=== PATIENT | female | born 1935 | race Caucasian/White ===

== ENCOUNTER 2016-12-17 12:03 | Inpatient (IN) | payer MEDICARE ==
[~2016-12-17] VITALS: Ht 160 cm; Wt 92.3 kg
[2016-12-17] VITALS (7 sets, daily range): BP systolic 136–142; BP diastolic 49–78; PULSE 78–85; RESP 18–20; TEMP 97.2–99.4; O2SAT 89–97
[~2016-12-17 12:03] MED LIST: ALBU6.7H INH; ALPR.25 PO; ASPI1TAB69 PO; DONE5TAB7 PO; ENOX40IN SQ; GABA100C4 PO; HYDR-3516 PO; LEVO25TA4 PO; PERI8.6T PO; PLAV75TA29 PO; PROT40TA PO; REST15CA PO; ROPI.25 PO; THERTAB27 PO
[2016-12-17] MEDS ORDERED: RESP: ALBUTEROL 2.5 MG/IPRATROPIUM 0.5 MG NEB (SCH) INH ONE (12:15)
[2016-12-17] MEDS ORDERED: methylPREDNISolone SOD SUCC 125 MG/2 ML VIAL IVP ONE (12:15)
--- NOTE | 2016-12-17 12:16 | PD ---
HPI Chief Complaint: Respiratory Distress Time Seen by Provider: 12:05 Travel History International Travel<30 days: No Contact w/Intl Traveler<30days: No Traveled to known affect area: No History of Present Illness HPI 81-year-old female complains of shortness of breath. Patient states that the shortness of breath started this morning. Patient denies any coughing congestion fever chills. Patient denies any chest pain. Patient has history of COPD on home O2. Patient on 3 L nasal cannula at home. EMS was called. O2 saturation was in the 80s at home. Patient was given O2. Patient was given albuterol treatments [address] to the ED. Patient states that she is feeling better now. Patient has history of CAD status post CABG, normal pressure hydrocephalus status post COMPUTATIONAL CHEMIST shunt, hypertension, chronic back pain, dementia/Alzheimer's disease, hypothyroidism. PFSH Past Medical History Arthritis: Yes Asthma: No Autoimmune Disease: No Blood Disorders: No Anxiety: No Depression: No Heart Rhythm Problems: No Cancer: No Cardiovascular Problems: Yes High Cholesterol: Yes Chemotherapy: No Chest Pain: Yes (UNSTABLE ANGINA, TREATED WITH SURGERY) Congestive Heart Failure: No COPD: Yes Cerebrovascular Accident: No Coronary Artery Disease: Yes (UNSTABLE ANGINA) Diabetes: No Diminished Hearing: No Endocrine: Yes Gastrointestinal Disorders: Yes (LACTOSE INTOLERANT) GERD: Yes Glaucoma: No Genitourinary: No Headaches: No Hepatitis: No Hiatal Hernia: No Hypertension: Yes Immune Disorder: No Kidney Stones: No Musculoskeletal: Yes (CHRONIC BACK PAIN) Neurologic: Yes (NORMAL PRESSURE HYDROCEPHALUS) Psychiatric: No Reproductive: No Respiratory: Yes (COPD ON HOME O2 3L) Immunizations Current: Yes Migraines: No Myocardial Infarction: No Radiation Therapy: No Renal Failure: No Seizures: No Sickle Cell Disease: No Sleep Apnea: No Thyroid Disease: Yes (HYPOTHYROIDISM) Ulcer: No Menopausal: Yes Past Surgical History Abdominal Surgery: No AICD: No Arteriovenous Shunt: No Cardiac Surgery: Yes (CABG) Coronary Artery Bypass Graft: Yes Ear Surgery: No Endocrine Surgery: No Eye Surgery: Yes (BILATERAL LASER CATERACT SURGERY) Genitourinary Surgery: No Gynecologic Surgery: No Insulin Pump: No Joint Replacement: No Neurologic Surgery: Yes (SHUNT) Oral Surgery: No Pacemaker: No Thoracic Surgery: No Other Surgery: Yes Social History Alcohol Use: Yes ("OCCASIONALLY" PER PT) Tobacco Use: No Substance Use: No Allergies-Medications (Allergen,Severity, Reaction): Coded Allergies: Codeine (Verified Allergy, Mild, DIARRHEA, VOMITING, 12/17/16) Sulfa (Verified Allergy, Mild, GI BLEED, 12/17/16) Tetracycline (Verified Adverse Reaction, Severe, CAUSES PT TO GET YEAST INFECTION, PREFERS NOT TO HAVE MEDICA, 12/17/16) Reported Meds & Prescriptions Reported Meds & Active Scripts Active Reported Bisacodyl Supp (Bisacodyl) 10 Mg Supp 10 Mg RECTAL DAILY PRN Anoro Ellipta Inh (Umeclidinium/Vilanterol) 62.5-25 Mcg/Act Aero 1 Puff INH DAILY Mirtazapine 30 Mg Tab 30 Mg PO HS Clonazepam 1 Mg Tab 1 Mg PO BID Hydrocodone-Acetaminophen 10-325 mg Tab 1 Tab PO Q6H PRN Aspirin 81 Mg Tabdr 81 Mg PO DAILY Proventil Hfa 6.7 GM Inh (Albuterol Sulfate) 90 Mcg/Act Aer 2 Puff INH Q4HR PRN Gabapentin 100 Mg Cap 300 Mg PO BID Levothyroxine (Levothyroxine Sodium) 25 Mcg Tab 25 Mcg PO DAILY Irasema-Colace (Sennosides-Docusate Sodium) 8.6-50 Mg Tab 1 Tab PO BID Plavix (Clopidogrel Bisulfate) 75 Mg Tab 75 Mg PO DAILY Protonix (Pantoprazole Sodium) 40 Mg Tab 20 Mg PO DAILY Requip (Ropinirole HCl) 0.25 Mg Tab 0.25 Mg PO HS Theragran-M (Multiple Vitamins W/ Minerals) 1 Tab 1 Tab PO DAILY Donepezil 5 Mg Tab 23 Mg PO HS Review of Systems General / Constitutional: No: Fever Eyes: No: Visual changes HENT: No: Headaches Cardiovascular: No: Chest Pain or Discomfort Respiratory: Positive: Shortness of Breath Gastrointestinal: No: Abdominal Pain Genitourinary: No: Dysuria Musculoskeletal: No: Pain Skin: No Rash Neurologic: No: Weakness Psychiatric: No: Depression Endocrine: No: Polydipsia Hematologic/Lymphatic: No: Easy Bruising Physical Exam Narrative GENERAL: Well-nourished, well-developed patient. SKIN: Focused skin assessment warm/dry. HEAD: Normocephalic. EYES: No scleral icterus. No injection or drainage. NECK: Supple, trachea midline. No JVD or lymphadenopathy. CARDIOVASCULAR: Regular rate and rhythm without murmurs, gallops, or rubs. RESPIRATORY: Breath sounds equal bilaterally. No accessory muscle use. Patient has moderate expiratory wheezes bilaterally. Few rhonchi at the bases. GASTROINTESTINAL: Abdomen soft, non-tender, nondistended. MUSCULOSKELETAL: No cyanosis, or edema. BACK: Nontender without obvious deformity. No CVA tenderness. Neurologic exam normal. Data Data Last Documented VS Vital Signs Date Time Temp Pulse Resp B/P Pulse Ox O2 Delivery O2 Flow Rate FiO2 12/17/16 13:30 81 18 136/49 97 Nasal Cannula 3 12/17/16 12:05 99.4 Orders Complete Blood Count With Diff (12/17/16 12:05) Comprehensive Metabolic Panel (12/17/16 12:05) B-Type Natriuretic Peptide (12/17/16 12:05) Troponin I (12/17/16 12:05) Urinalysis - C+S If Indicated (12/17/16 12:05) Iv Access Insert/Monitor (12/17/16 12:05) Electrocardiogram (12/17/16 12:05) Ecg Monitoring (12/17/16 12:05) Oximetry (12/17/16 12:05) Oxygen Administration (12/17/16 12:05) Chest, Single Ap (12/17/16 12:05) Methylprednisolone So Succ Inj (Solumedr (12/17/16 12:15) Albuterol-Ipratropium Neb (Duoneb Neb) (12/17/16 12:15) Sodium Chlor 0.9% 1000 Ml Inj (Ns 1000 M (12/17/16 12:15) Influenzae A/B Antigen (12/17/16 12:07) Labs Laboratory Tests Test 12/17/16 12/17/16 12:20 12:42 White Blood Count 15.4 TH/MM3 Red Blood Count 3.95 MIL/MM3 Hemoglobin 11.8 GM/DL Hematocrit 36.9 % Mean Corpuscular Volume 93.4 FL Mean Corpuscular Hemoglobin 29.9 PG Mean Corpuscular Hemoglobin 32.0 % Concent Red Cell Distribution Width 14.5 % Platelet Count 286 TH/MM3 Mean Platelet Volume 7.1 FL Neutrophils (%) (Auto) 58.6 % Lymphocytes (%) (Auto) 30.9 % Monocytes (%) (Auto) 6.2 % Eosinophils (%) (Auto) 1.0 % Basophils (%) (Auto) 3.3 % Neutrophils # (Auto) 8.9 TH/MM3 Lymphocytes # (Auto) 4.8 TH/MM3 Monocytes # (Auto) 1.0 TH/MM3 Eosinophils # (Auto) 0.2 TH/MM3 Basophils # (Auto) 0.5 TH/MM3 CBC Comment DIFF FINAL Differential Comment Sodium Level 136 MEQ/L Potassium Level 4.5 MEQ/L Chloride Level 92 MEQ/L Carbon Dioxide Level 41.6 MEQ/L Anion Gap 2 MEQ/L Blood Urea Nitrogen 12 MG/DL Creatinine 0.77 MG/DL Estimat Glomerular Filtration 72 ML/MIN Rate Random Glucose 117 MG/DL Calcium Level 8.4 MG/DL Total Bilirubin 0.3 MG/DL Aspartate Amino Transf 21 U/L (AST/SGOT) Alanine Aminotransferase 18 U/L (ALT/SGPT) Alkaline Phosphatase 72 U/L Troponin I LESS THAN 0.02 NG/ML B-Type Natriuretic Peptide 73 PG/ML Total Protein 7.7 GM/DL Albumin 3.1 GM/DL MDM Medical Decision Making Medical Screen Exam Complete: Yes Emergency Medical Condition: Yes Interpretation(s) Last Impressions Chest X-Ray 12/17/16 1205 Signed Impressions: Service Date/Time: Saturday, December 17, 2016 12:19 - CONCLUSION: No acute cardiopulmonary disease identified. Jovani Bellamy MD 1347 PM. EKG shows sinus rhythm nonspecific ST-T wave change. CBC WBC 15.4. Normal differential. BUN 12 and creatinine 0.77. Bicarbonate 41.6. Cardiac enzymes are normal. BNP 73. Differential Diagnosis Differential diagnosis including acute exacerbation COPD, bronchitis, pneumonia , PE, pneumothorax. Narrative Course 81-year-old female with shortness of breath. History of COPD on home O2. Patient was given albuterol treatment 3 by EMS. Albuterol with Atrovent unit dose treatment times one. Solu-Medrol 125 mg IV. Rocephin 1 g IV. Zithromax 500 mg IV. 1350 5 PM. Repeat examination patient is feeling better. O2 sat in the 96% on 3 L nasal cannula. Diagnosis Primary Impression: COPD with acute exacerbation Domenico Chung MD December 17, 2016 12:16 Domenico Chung MD December 17, 2016 12:16
[2016-12-17] MEDS: SODIUM CHLOR 0.9% 1000 ML INJ 1,000 ML IV SCH (12:49)
[2016-12-17 12:52] LABS: AUTOMATED NEUTROPHIL # 8.9 TH/MM3 (1.8-7.7); BASOPHIL # 0.5 TH/MM3 (0-0.2); BASOPHIL % 3.3 % (0.0-2.0); EOSINOPHIL # 0.2 TH/MM3 (0-0.4); HEMATOCRIT 36.9 % (35.0-46.0); LYMPH % 30.9 % (9.0-44.0); LYMPHOCYTE # 4.8 TH/MM3 (1.0-4.8); MEAN CELL VOLUME 93.4 FL (80.0-100.0); MEAN CORPUSCULAR HEMOGLOBIN 29.9 PG (27.0-34.0); MONO % 6.2 % (0.0-8.0); NEUT % 58.6 % (16.0-70.0); PLATELET COUNT 286 TH/MM3 (150-450); RED BLOOD COUNT 3.95 MIL/MM3 (4.00-5.30); RED CELL DISTRIBUTION WIDTH 14.5 % (11.6-17.2); WHITE BLOOD COUNT 15.4 TH/MM3 (4.0-11.0)
[2016-12-17 12:53] LABS: HEMO FLAGS DIFF FINAL
[2016-12-17 12:59] LABS: CHLORIDE 92 MEQ/L (98-107); POTASSIUM 4.5 MEQ/L (3.5-5.1); SODIUM (NA) 136 MEQ/L (136-145)
[2016-12-17] MEDS ORDERED: BISA10SU3 RECTAL (13:02)
[2016-12-17] MEDS ORDERED: CLON1TAB PO (13:02)
[2016-12-17] MEDS ORDERED: MIRT30TA PO (13:02)
[2016-12-17] MEDS ORDERED: HYDR-3583 PO (13:02)
[2016-12-17] MEDS ORDERED: UMEC1AER INH (13:02)
[2016-12-17 13:03] LABS: ANION GAP 2 MEQ/L (5-15); BICARBONATE 41.6 MEQ/L (21.0-32.0); BLOOD UREA NITROGEN 12 MG/DL (7-18)
--- NOTE | 2016-12-17 13:04 | RADHPO ---
EXAM DATE/TIME: 12/17/2016 12:19 [facility] COMPARISON: CHEST SINGLE AP, May 06, 2016, 11:38. INDICATIONS : Shortness of breath. MEDICAL HISTORY : Hypertension. Hypercholesterolemia. Hypothyroidism. CAD, GERD, SURGICAL HISTORY : CABG. Shunt, ORIF right ankle ENCOUNTER: Initial ACUITY: 1 day PAIN SCORE: 0/10 LOCATION: Chest. FINDINGS: Single AP view of the chest. Ventriculoperitoneal shunt again seen on the right. Median sternotomy wi res. Low lung volumes. Scarring at the left lung base unchanged. Lungs otherwise clear. No evidence o f pleural effusion or pneumothorax. CONCLUSION: No acute cardiopulmonary disease identified. Jovani Bellamy MD on December 17, 2016 at 13:02 Board Certified Radiologist. This report was verified electronically.
[2016-12-17 13:06] LABS: ALT (GPT) 18 U/L (10-53); AST (GOT) 21 U/L (15-37); GLOMERULAR FILTRATION RATE 72 ML/MIN (>89)
[2016-12-17 13:07] LABS: TOTAL BILIRUBIN ADULT 0.3 MG/DL (0.2-1.0)
[2016-12-17 13:09] LABS: ALKALINE PHOSPHATASE 72 U/L (45-117)
[2016-12-17] MEDS ORDERED: cefTRIAXone INJ 1,000 MG in SODIUM CHLORIDE 0.9% INJ 100 ML IV ONE (14:00)
[2016-12-17] MEDS ORDERED: AZITHROMYCIN INJ 500 MG in SODIUM CHLOR 0.9% 250 ML INJ 250 ML IV ONE (14:00)
[2016-12-17] MEDS ORDERED: NALOXONE HCL 0.4 MG/ML AMP IV PRN (14:15)
[2016-12-17] MEDS ORDERED: SODIUM CHLORIDE 0.9% FLUSH 10 ML FLUSH IV FLUSH PRN (14:15)
[2016-12-17] MEDS ORDERED: ONDANSETRON HCL 4 MG/2 ML VIAL IVP PRN (14:15)
--- NOTE | 2016-12-17 15:05 | HHI.HP ---
[facility] Nga Littlejohn MD Admission Diagnosis acute exacerbation COPD Diagnoses: (1) COPD with acute exacerbation Diagnosis: Principal (2) Hypoxia Diagnosis: Principal Travel History International Travel<30 Days: No Contact w/Intl Traveler <30 Da: No Traveled to Known Affected Are: No History of Present Illness Mrs. Ahumada is an 81 year old female. She has a history of hypertension, hyperlipidemia, coronary artery disease, CABG, COPD, hypothyroidism, and CVA. In the last 24 she has had worsening of her COPD. She was short of breath at home and oxygenating in the mid 80s when she was picked up by EMS. Her lowest reading is 89% here in the ER and she has been on oxygen. She is on oxygen chronically at home at a baseline rate of 3 L/min. No fevers or cough reported. She can't think of any exposures that could've causes. She is not smoking currently. With treatment ER she has had improvement in her symptoms. She is responding well to steroids and nebulized treatments. No other complaints. No chest pain. Review of Systems Constitutional: DENIES: Fever, Weight loss, Chills Eyes: DENIES: Blurred vision, Diplopia Ears, nose, mouth, throat: DENIES: Hearing loss, Vertigo Respiratory: COMPLAINS OF: Wheezing, Shortness of breath, DENIES: Cough Cardiovascular: DENIES: Chest pain, Palpitations Gastrointestinal: DENIES: Abdominal pain, Black stools, Bloody stools Musculoskeletal: DENIES: Joint pain, Back pain Integumentary: DENIES: Abnormal pigmentation Hematologic/lymphatic: DENIES: Bruising Immunologic/allergic: DENIES: Eczema Neurologic: DENIES: Abnormal gait Psychiatric: DENIES: Anxiety, Confusion Past Family Social History Past Medical History Hypertension Hyperlipidemia Coronary artery disease COPD Hypothyroidism CVA history Past Surgical History CABG Bilateral laser cataract surgery BT shunt placement Reported Medications Reported Meds & Active Scripts Active Reported Bisacodyl Supp (Bisacodyl) 10 Mg Supp 10 Mg RECTAL DAILY PRN Anoro Ellipta Inh (Umeclidinium/Vilanterol) 62.5-25 Mcg/Act Aero 1 Puff INH DAILY Mirtazapine 30 Mg Tab 30 Mg PO HS Clonazepam 1 Mg Tab 1 Mg PO BID Hydrocodone-Acetaminophen 10-325 mg Tab 1 Tab PO Q6H PRN Aspirin 81 Mg Tabdr 81 Mg PO DAILY Proventil Hfa 6.7 GM Inh (Albuterol Sulfate) 90 Mcg/Act Aer 2 Puff INH Q4HR PRN Gabapentin 100 Mg Cap 300 Mg PO BID Levothyroxine (Levothyroxine Sodium) 25 Mcg Tab 25 Mcg PO DAILY Irasema-Colace (Sennosides-Docusate Sodium) 8.6-50 Mg Tab 1 Tab PO BID Plavix (Clopidogrel Bisulfate) 75 Mg Tab 75 Mg PO DAILY Protonix (Pantoprazole Sodium) 40 Mg Tab 20 Mg PO DAILY Requip (Ropinirole HCl) 0.25 Mg Tab 0.25 Mg PO HS Theragran-M (Multiple Vitamins W/ Minerals) 1 Tab 1 Tab PO DAILY Donepezil 5 Mg Tab 23 Mg PO HS Allergies: Coded Allergies: Codeine (Verified Allergy, Mild, DIARRHEA, VOMITING, 12/17/16) Sulfa (Verified Allergy, Mild, GI BLEED, 12/17/16) Tetracycline (Verified Adverse Reaction, Severe, CAUSES PT TO GET YEAST INFECTION, PREFERS NOT TO HAVE MEDICA, 12/17/16) Active Ordered Medications Administered Medications Medications (Trade) Dose Ordered Sig/Ashley Route PRN Reason Start Time Stop Time Status Last Admin Dose Admin Sodium Chloride 1,000 ml @ 70 mls/hr [id number] IV 12/17/16 12:15 12/17/16 12:49 Azithromycin/ Sodium Chloride (Zithromax Inj/ NS 250 ml Inj) 250 ml @ 250 mls/hr ONCE ONCE IV 12/17/16 14:00 12/17/16 14:59 12/17/16 14:11 Family History None reported Social History No tobacco, alcohol, or drug abuse. Physical Exam Vital Signs Vital Signs Date Time Temp Pulse Resp B/P Pulse Ox O2 Delivery O2 Flow Rate FiO2 12/17/16 13:30 81 18 136/49 97 Nasal Cannula 3 12/17/16 12:13 95 Nasal Cannula 2.00 12/17/16 12:12 95 Nasal Cannula 3 12/17/16 12:12 95 Nasal Cannula 3 12/17/16 12:10 Nasal Cannula 12/17/16 12:05 99.4 85 18 138/54 89 Physical Exam GENERAL: NAD, A&Ox3 SKIN: Warm and dry. HEAD: Normocephalic. EYES: No scleral icterus. No injection or drainage. NECK: Supple, trachea midline. No JVD or lymphadenopathy. CARDIOVASCULAR: Regular rate and rhythm without murmurs, gallops, or rubs. RESPIRATORY: Breath sounds equal bilaterally. No accessory muscle use. Bilateral wheezing. GASTROINTESTINAL: Abdomen soft, non-tender, nondistended. MUSCULOSKELETAL: No cyanosis, or edema. Laboratory Laboratory Tests Test 12/17/16 12/17/16 12:20 12:42 White Blood Count 15.4 Red Blood Count 3.95 Hemoglobin 11.8 Hematocrit 36.9 Mean Corpuscular Volume 93.4 Mean Corpuscular Hemoglobin 29.9 Mean Corpuscular Hemoglobin 32.0 Concent Red Cell Distribution Width 14.5 Platelet Count 286 Mean Platelet Volume 7.1 Neutrophils (%) (Auto) 58.6 Lymphocytes (%) (Auto) 30.9 Monocytes (%) (Auto) 6.2 Eosinophils (%) (Auto) 1.0 Basophils (%) (Auto) 3.3 Neutrophils # (Auto) 8.9 Lymphocytes # (Auto) 4.8 Monocytes # (Auto) 1.0 Eosinophils # (Auto) 0.2 Basophils # (Auto) 0.5 CBC Comment DIFF FINAL Differential Comment Sodium Level 136 Potassium Level 4.5 Chloride Level 92 Carbon Dioxide Level 41.6 Anion Gap 2 Blood Urea Nitrogen 12 Creatinine 0.77 Estimat Glomerular Filtration 72 Rate Random Glucose 117 Calcium Level 8.4 Total Bilirubin 0.3 Aspartate Amino Transf 21 (AST/SGOT) Alanine Aminotransferase 18 (ALT/SGPT) Alkaline Phosphatase 72 Troponin I LESS THAN 0.02 B-Type Natriuretic Peptide 73 Total Protein 7.7 Albumin 3.1 Date/Time Procedure Status Source Growth 12/17/16 12:43 Influenza Types A,B Antigen (JORDI) - Final Complete Nasal Washing NEGATIVE FOR FLU A AND B ANTIGEN.... Result Diagram: 12/17/16 1220 12/17/16 1242 Imaging Last Impressions Chest X-Ray 12/17/16 1205 Signed Impressions: Service Date/Time: Saturday, December 17, 2016 12:19 - CONCLUSION: No acute cardiopulmonary disease identified. Jovani Bellamy MD Assessment and Plan Problem List: (1) COPD with acute exacerbation ICD Code: J44.1 Status: Acute (2) Hypoxia ICD Code: R09.02 Status: Acute (3) Hypothyroidism ICD Code: E03.9 Status: Chronic (4) Hyperlipidemia ICD Code: E78.5 Status: Acute (5) Hypertension ICD Code: I10 Status: Chronic (6) CAD (coronary artery disease) ICD Code: I25.10 Status: Chronic (7) History of CVA (cerebrovascular accident) ICD Code: Z86.73 Status: Acute Assessment and Plan Assessment and plan 81-year-old female with COPD at baseline. Admitted with COPD exacerbation. COPD exacerbation Hypoxia Systemic steroids Schedule DuoNeb's When necessary albuterol Titrate oxygen to maintain saturations greater than 92% Consider discharge when she is returning to baseline Coronary artery disease History of CABG Maintain baseline treatments. Follow on telemetry. No chest pain. History of CVA Supportive care and clinical monitoring. Hyperlipidemia Continue baseline treatment Follow as an outpatient Hypothyroidism Follow as an outpatient Continue insulin treatment Hypertension No change to baseline medications at this time Follow blood pressure POSTAL MAIL CARRIER shunt Follow clinically DVT prophylaxis Lovenox Physician Certification 2 Midnight Certification Type: Admission for Inpatient Services Order for Inpatient Services The services are ordered in accordance with Medicare regulations or non- Medicare payer requirements, as applicable. In the case of services not specified as inpatient-only, they are appropriately provided as inpatient services in accordance with the 2-midnight benchmark. Estimated LOS (days): 2 days is the estimated time the patient will need to remain in the hospital, assuming treatment plan goals are met and no additional complications. Post-Hospital Plan: Reilly Post MD December 17, 2016 15:05
[2016-12-17] MEDS: RESP: ALBUTEROL 2.5 MG/IPRATROPIUM 0.5 MG NEB (SCH) NEB ×2 (15:59→19:17)
[2016-12-17] MEDS ORDERED: RESP: ALBUTEROL 2.5 MG/IPRATROPIUM 0.5 MG NEB (PRN) ONE (15:59)
[2016-12-17] MEDS ORDERED: RESP: ALBUTEROL 2.5 MG/3 ML NEB (SCH) NEB (16:00)
[2016-12-17 16:24] LABS: BLOOD, URINE NEG (NEG); GLUCOSE,URINE NEG (NEG); KETONE, URINE NEG (NEG); NITRITE,URINE NEG (NEG)
[2016-12-17] MEDS ORDERED: RESP: ALBUTEROL 2.5 MG/3 ML NEB (PRN) INH (16:30)
[2016-12-17 16:49] LABS: METHOD OF COLLECTION CLEAN CATCH; URINE COLOR YELLOW (YELLW/STRAW)
[2016-12-17 16:50] LABS: BACTERIA, URINE MOD /hpf; COMMENT (UR) CULTURE INDICATED; CULTURE IF INDICATED CULTURE INDICATED
[2016-12-17] MEDS: ENOXAPARIN SODIUM 40 MG/0.4 ML SYRINGE SQ SCH (16:58)
[2016-12-17] MEDS: predniSONE 20 MG TAB PO SCH (17:48)
[2016-12-17] MEDS ORDERED: BISACODYL 10 MG SUPP RECTAL PRN (19:00)
[2016-12-17] MEDS: clonazePAM 1 MG TAB PO SCH (21:00)
[2016-12-17] MEDS: MIRTAZAPINE 15 MG TAB PO SCH (21:21)
[2016-12-17] MEDS: GABAPENTIN 300 MG CAP PO SCH (21:21)
[2016-12-17] MEDS: DOCUSATE SODIUM 50 MG/SENNA 8.6 MG TAB PO SCH (21:21)
[2016-12-17] MEDS: DONEPEZIL HCL 23 MG TAB PO SCH (21:22)
[2016-12-17] MEDS: SODIUM CHLORIDE 0.9% FLUSH 10 ML FLUSH IV FLUSH SCH (21:22)
[2016-12-17] MEDS: ACETAMINOPHEN/HYDROcodone 325 MG/10 MG TAB PO PRN (22:01)
[2016-12-18] VITALS (8 sets, daily range): BP systolic 130–183; BP diastolic 65–77; PULSE 72–88; RESP 18–24; TEMP 96.6–98.9; O2SAT 91–94
[2016-12-18] MEDS: SODIUM CHLOR 0.9% 1000 ML INJ 1,000 ML IV SCH ×2 (02:33→16:51)
[2016-12-18] MEDS: LEVOTHYROXINE SODIUM 25 MCG TAB PO SCH (06:14)
[2016-12-18 08:54] LABS: AUTOMATED NEUTROPHIL # 10.6 TH/MM3 (1.8-7.7); BASOPHIL % 0.2 % (0.0-2.0); HEMATOCRIT 33.8 % (35.0-46.0); LYMPH % 14.6 % (9.0-44.0); LYMPHOCYTE # 1.9 TH/MM3 (1.0-4.8); MEAN CELL VOLUME 94.1 FL (80.0-100.0); MEAN CORPUSCULAR HEMOGLOBIN 29.6 PG (27.0-34.0); MEAN CORPUSCULAR HGB CONC 31.5 % (32.0-36.0); MONO % 5.6 % (0.0-8.0); NEUT % 79.6 % (16.0-70.0); PLATELET COUNT 314 TH/MM3 (150-450); RED BLOOD COUNT 3.59 MIL/MM3 (4.00-5.30); RED CELL DISTRIBUTION WIDTH 15.1 % (11.6-17.2); WHITE BLOOD COUNT 13.2 TH/MM3 (4.0-11.0)
[2016-12-18 08:59] LABS: POTASSIUM 4.5 MEQ/L (3.5-5.1)
[2016-12-18 09:03] LABS: BICARBONATE 42.9 MEQ/L (21.0-32.0)
[2016-12-18 09:09] LABS: HEMO FLAGS DIFF FINAL
[2016-12-18] MEDS: ACETAMINOPHEN/HYDROcodone 325 MG/10 MG TAB PO PRN ×2 (09:35→17:15)
[2016-12-18] MEDS: SODIUM CHLORIDE 0.9% FLUSH 10 ML FLUSH IV FLUSH SCH ×2 (09:36→20:31)
[2016-12-18] MEDS: UMECLIDINIUM 62.5 MCG/VILANTEROL 25 MCG INHALER INH SCH (09:36)
[2016-12-18] MEDS: PANTOPRAZOLE SOD 20 MG DELAYED RELEASE TAB PO SCH (09:37)
[2016-12-18] MEDS: GABAPENTIN 300 MG CAP PO SCH ×2 (09:37→20:30)
[2016-12-18] MEDS: CLOPIDOGREL 75 MG TAB PO SCH (09:37)
[2016-12-18] MEDS: predniSONE 20 MG TAB PO SCH ×3 (09:37→17:14)
[2016-12-18] MEDS: DOCUSATE SODIUM 50 MG/SENNA 8.6 MG TAB PO SCH ×2 (09:37→20:29)
[2016-12-18] MEDS: MULTIVITAMINS/MINERALS THERAPEUTIC TAB PO SCH (09:37)
[2016-12-18] MEDS: ASPIRIN EC 81 MG TABEC PO SCH (09:37)
[2016-12-18] MEDS: clonazePAM 1 MG TAB PO SCH ×2 (09:37→20:30)
--- NOTE | 2016-12-18 10:46 | HHI.PR ---
Subjective Remarks Compared to last night she has improved. She remains weak and does not feel that she has returned to her regular baseline. No fevers. She reports numerous past hospitalizations for COPD exacerbation. Objective Vital Signs Date Time Temp Pulse Resp B/P Pulse Ox O2 Delivery O2 Flow Rate FiO2 12/18/16 08:02 93 Nasal Cannula 2.00 12/18/16 08:00 96.6 72 20 147/65 92 12/18/16 05:13 97.2 86 18 152/73 91 12/18/16 00:56 97.5 84 22 130/67 94 12/17/16 21:24 98.9 78 18 142/78 92 12/17/16 19:17 95 Nasal Cannula 3.00 12/17/16 16:00 97.2 82 20 140/64 96 12/17/16 13:30 81 18 136/49 97 Nasal Cannula 3 12/17/16 12:13 95 Nasal Cannula 2.00 12/17/16 12:12 95 Nasal Cannula 3 12/17/16 12:12 95 Nasal Cannula 3 12/17/16 12:10 Nasal Cannula 12/17/16 12:05 99.4 85 18 138/54 89 I/O 12/17/16 12/17/16 12/17/16 12/18/16 12/18/16 12/18/16 07:00 15:00 23:00 07:00 15:00 23:00 Intake Total 250 ml Balance 250 ml Intake Oral 250 ml IV Total 0 ml # Voids 1 1 # Bowel Movements 1 1 Result Diagram: 12/18/16 0823 12/18/16 0823 Imaging Last Impressions Chest X-Ray 12/17/16 1205 Signed Impressions: Service Date/Time: Saturday, December 17, 2016 12:19 - CONCLUSION: No acute cardiopulmonary disease identified. Jovani Bellmay MD Objective Remarks GENERAL: NAD, A&Ox3 SKIN: Warm and dry. HEAD: Normocephalic. EYES: No scleral icterus. No injection or drainage. NECK: Supple, trachea midline. No JVD or lymphadenopathy. CARDIOVASCULAR: Regular rate and rhythm without murmurs, gallops, or rubs. RESPIRATORY: Breath sounds equal bilaterally. No accessory muscle use. GASTROINTESTINAL: Abdomen soft, non-tender, nondistended. MUSCULOSKELETAL: No cyanosis, or edema. A/P Problem List: (1) COPD (chronic obstructive pulmonary disease) ICD Code: J44.9 (2) COPD with acute exacerbation ICD Code: J44.1 (3) History of CVA (cerebrovascular accident) ICD Code: Z86.73 (4) Hypertension ICD Code: I10 (5) Hypoxia ICD Code: R09.02 (6) Hypothyroidism ICD Code: E03.9 (7) Status post coronary artery bypass graft ICD Code: Z95.1 (8) S/P BRIDGE IRONWORKER shunt ICD Code: Z98.2 (9) Chronic respiratory failure with hypoxia ICD Code: J96.11 Assessment and Plan Assessment and plan 81-year-old female with COPD at baseline. Admitted with COPD exacerbation. She has some improvement but has not yet returned to baseline. PT added to her treatment regime. She will continue on treatments as stated below otherwise. COPD exacerbation Hypoxia Chronic respiratory failure (oxygen dependent) Systemic steroids Schedule DuoNeb's When necessary albuterol Titrate oxygen to maintain saturations greater than 92% Consider discharge when she is returning to baseline Coronary artery disease History of CABG Maintain baseline treatments. Follow on telemetry. No chest pain. History of CVA Supportive care and clinical monitoring. Hyperlipidemia Continue baseline treatment Follow as an outpatient Hypothyroidism Follow as an outpatient Continue insulin treatment Hypertension No change to baseline medications at this time Follow blood pressure BRIDGE IRONWORKER shunt Follow clinically DVT prophylaxis Reilly Gross MD December 18, 2016 10:46 am
[2016-12-18] MEDS ORDERED: AZITHROMYCIN INJ 500 MG in SODIUM CHLOR 0.9% 250 ML INJ 250 ML IV SCH (14:00)
[2016-12-18] MEDS: RESP: ALBUTEROL 2.5 MG/IPRATROPIUM 0.5 MG NEB (SCH) NEB ×2 (14:35→19:12)
[2016-12-18] MEDS: ENOXAPARIN SODIUM 40 MG/0.4 ML SYRINGE SQ SCH (15:00)
--- NOTE | 2016-12-18 16:59 | EKG ---
Date Performed: 12/17/2016 Time Performed: 12:08:26 PTAGE: 81 years EKG: Sinus rhythm Anterolateral T wave changes are nonspecific Low QRS voltages in precordial leads Borderline ECG PREVIOUS TRACING : 05/03/2016 15.52 Compared to prior tracing no significant change DOCTOR: Aster Weiner Interpretating Date/Time 12/18/2016 16:58:49
[2016-12-18] MEDS: DONEPEZIL HCL 23 MG TAB PO SCH (20:30)
[2016-12-18] MEDS: MIRTAZAPINE 15 MG TAB PO SCH (20:30)
[2016-12-19 00:41] VITALS: BP 146/69; PULSE 87; RESP 20; TEMP 96.7; O2SAT 94
[2016-12-19 04:47] VITALS: BP 151/70; PULSE 57; RESP 20; TEMP 96; O2SAT 98
[2016-12-19] MEDS: SODIUM CHLOR 0.9% 1000 ML INJ 1,000 ML IV SCH (05:00)
[2016-12-19] MEDS: LEVOTHYROXINE SODIUM 25 MCG TAB PO SCH (05:00)
[2016-12-19 07:54] VITALS: O2SAT 96
[2016-12-19] MEDS: RESP: ALBUTEROL 2.5 MG/IPRATROPIUM 0.5 MG NEB (SCH) NEB (07:54)
[2016-12-19 08:00] VITALS: BP 172/91; PULSE 93; RESP 20; TEMP 97.8; O2SAT 93
[2016-12-19 08:08] LABS: HEMATOCRIT 34.3 % (35.0-46.0); MEAN CELL VOLUME 95.2 FL (80.0-100.0); MEAN CORPUSCULAR HGB CONC 31.5 % (32.0-36.0); PLATELET COUNT 298 TH/MM3 (150-450); POTASSIUM 4.5 MEQ/L (3.5-5.1); RED CELL DISTRIBUTION WIDTH 14.7 % (11.6-17.2); REVIEW FLAG FINAL; WHITE BLOOD COUNT 13.3 TH/MM3 (4.0-11.0)
[2016-12-19 08:30] VITALS: PULSE 73
[2016-12-19] MEDS: GABAPENTIN 300 MG CAP PO SCH (08:51)
[2016-12-19] MEDS: CLOPIDOGREL 75 MG TAB PO SCH (08:52)
[2016-12-19] MEDS: DOCUSATE SODIUM 50 MG/SENNA 8.6 MG TAB PO SCH (08:52)
[2016-12-19] MEDS: PANTOPRAZOLE SOD 20 MG DELAYED RELEASE TAB PO SCH (08:53)
[2016-12-19] MEDS: ASPIRIN EC 81 MG TABEC PO SCH (08:53)
[2016-12-19] MEDS: MULTIVITAMINS/MINERALS THERAPEUTIC TAB PO SCH (08:53)
[2016-12-19] MEDS: clonazePAM 1 MG TAB PO SCH (08:53)
[2016-12-19] MEDS: predniSONE 20 MG TAB PO SCH (08:53)
[2016-12-19] MEDS: UMECLIDINIUM 62.5 MCG/VILANTEROL 25 MCG INHALER INH SCH (08:55)
[2016-12-19] MEDS: SODIUM CHLORIDE 0.9% FLUSH 10 ML FLUSH IV FLUSH SCH (08:55)
[2016-12-19] MEDS ORDERED: PRED20 PO (10:40)
[2016-12-19] MEDS ORDERED: AZIT250T3 PO (10:40)
--- NOTE | 2016-12-19 13:19 | HHI.FF ---
Face to Face Verification Diagnosis: (1) Chronic respiratory failure with hypoxia (2) COPD with acute exacerbation Physical Therapy Order: Evaluate and Treat I have seen patient Kristina Ahumada on 12/19/16. My clinical findings support the need for the requested home health care services because: Patient has SOB Limited ability to care for self High risk of falls I certify that my clinical findings support that this patient is homebound because: Unsteady gait/balance Unsafe to leave home unassisted Unable to use public transportation Reilly Townsend MD December 19, 2016 1:19 pm
--- NOTE | 2016-12-19 13:23 | HHI.DS ---
Discharge Summary Admission Date December 17, 2016 at 2:26 pm Discharge Date: December 19, 2016 Admitting Diagnosis acute exacerbation COPD (1) COPD with acute exacerbation ICD Code: J44.1 (2) Hypoxia ICD Code: R09.02 Diagnosis: Principal (3) Hypothyroidism ICD Code: E03.9 Diagnosis: Secondary (4) Hyperlipidemia ICD Code: E78.5 Diagnosis: Secondary (5) Hypertension ICD Code: I10 Diagnosis: Secondary (6) CAD (coronary artery disease) ICD Code: I25.10 Diagnosis: Secondary (7) History of CVA (cerebrovascular accident) ICD Code: Z86.73 Diagnosis: Secondary Procedures None Brief History - From Admission Mrs. Ahumada is an 81 year old female. She has a history of hypertension, hyperlipidemia, coronary artery disease, CABG, COPD, hypothyroidism, and CVA. In the last 24 she has had worsening of her COPD. She was short of breath at home and oxygenating in the mid 80s when she was picked up by EMS. Her lowest reading is 89% here in the ER and she has been on oxygen. She is on oxygen chronically at home at a baseline rate of 3 L/min. No fevers or cough reported. She can't think of any exposures that could've causes. She is not smoking currently. With treatment ER she has had improvement in her symptoms. She is responding well to steroids and nebulized treatments. No other complaints. No chest pain. CBC/BMP: 12/19/16 0725 12/19/16 0725 Significant Findings Laboratory Tests Test 12/17/16 12/17/16 12/17/16 12/18/16 12:20 12:42 15:40 08:23 White Blood Count 15.4 TH/MM3 13.2 TH/MM3 (4.0-11.0) (4.0-11.0) Red Blood Count 3.95 MIL/MM3 3.59 MIL/MM3 (4.00-5.30) (4.00-5.30) Basophils (%) (Auto) 3.3 % (0.0-2.0) Neutrophils # (Auto) 8.9 TH/MM3 10.6 TH/MM3 (1.8-7.7) (1.8-7.7) Monocytes # (Auto) 1.0 TH/MM3 (0-0.9) Basophils # (Auto) 0.5 TH/MM3 (0-0.2) Chloride Level 92 MEQ/L 93 MEQ/L (98-107) (98-107) Carbon Dioxide Level 41.6 MEQ/L 42.9 MEQ/L (21.0-32.0) (21.0-32.0) Anion Gap 2 MEQ/L (5-15) 2 MEQ/L (5-15) Estimat Glomerular Filtration 72 ML/MIN (>89) 70 ML/MIN (>89) Rate Random Glucose 117 MG/DL 126 MG/DL (74-106) (74-106) Calcium Level 8.4 MG/DL 8.1 MG/DL (8.5-10.1) (8.5-10.1) Troponin I LESS THAN 0.02 NG/ML (0.02-0.05) Albumin 3.1 GM/DL (3.4-5.0) Urine Leukocyte Esterase MOD (NEG) Urine WBC 6-8 /hpf (0-5) Urine Squamous Epithelial 6-8 /hpf (0-5) Cells Urine Bacteria MOD /hpf (NONE) Hemoglobin 10.6 GM/DL (11.6-15.3) Hematocrit 33.8 % (35.0-46.0) Mean Corpuscular Hemoglobin 31.5 % Concent (32.0-36.0) Neutrophils (%) (Auto) 79.6 % (16.0-70.0) Test 12/19/16 07:25 White Blood Count 13.3 TH/MM3 (4.0-11.0) Red Blood Count 3.60 MIL/MM3 (4.00-5.30) Hemoglobin 10.8 GM/DL (11.6-15.3) Hematocrit 34.3 % (35.0-46.0) Mean Corpuscular Hemoglobin 31.5 % Concent (32.0-36.0) Chloride Level 97 MEQ/L (98-107) Carbon Dioxide Level 42.0 MEQ/L (21.0-32.0) Anion Gap 1 MEQ/L (5-15) Random Glucose 112 MG/DL (74-106) PE at Discharge GENERAL: NAD, A&Ox3 SKIN: Warm and dry. HEAD: Normocephalic. EYES: No scleral icterus. No injection or drainage. NECK: Supple, trachea midline. No JVD or lymphadenopathy. CARDIOVASCULAR: Regular rate and rhythm without murmurs, gallops, or rubs. RESPIRATORY: Breath sounds equal bilaterally. No accessory muscle use. GASTROINTESTINAL: Abdomen soft, non-tender, nondistended. MUSCULOSKELETAL: No cyanosis, or edema. Hospital Course Mrs. Ahumada is an 81-year-old female. She was admitted with COPD exacerbation. No evidence of pneumonia. She is oxygen dependent at baseline. Steroids, nebs , and antibiotic she has returned to her baseline. Yesterday she was weak so she was kept one day for physical therapy but today she has resolution of her weakness and she feels at baseline and is wishing to return home. She is medically stable for discharge to home. She will resume prior treatments and in addition use azithromycin and prednisone temporarily. Pt Condition on Discharge: Stable Discharge Disposition: Disch w/ Home Health Serv Discharge Time: <= 30 minutes Discharge Instructions DIET: Follow Instructions for: As Tolerated, No Restrictions Activities you can perform: Regular-No Restrictions Follow up Referrals: PCP Follow-up - 1 Week New Medications: Azithromycin (Azithromycin) 250 Mg Tab 250 MG PO DIRECTED Take 2 tabs (500 mg) on day 1 then 1 tab daily x 4 days. Infection #6 Ref 0 TAB Prednisone (Prednisone) 20 Mg Tab 20 MG PO BID Breathing Treatment #4 Ref 0 TAB Continued Medications: Albuterol 6.7 GM Inh (Proventil Hfa 6.7 GM Inh) 90 Mcg/Act Aer 2 PUFF INH Q4HR PRN SHORTNESS OF BREATH Ref 0 INHALER Aspirin (Aspirin) 81 Mg Tabdr 81 MG PO DAILY TAB Bisacodyl Supp (Bisacodyl Supp) 10 Mg Supp 10 MG RECTAL DAILY PRN CONSTIPATION Ref 0 SUPP Clonazepam (Clonazepam) 1 Mg Tab 1 MG PO BID #60 Ref 0 TAB Clopidogrel (Plavix) 75 Mg Tab 75 MG PO DAILY Blood Clot Prevention Ref 0 TAB Donepezil (Donepezil) 5 Mg Tab 23 MG PO HS Dementia Ref 0 TAB Gabapentin (Gabapentin) 100 Mg Cap 300 MG PO BID Ref 0 CAP Hydrocodone-Acetaminophen (Hydrocodone-Acetaminophen) 10-325 mg Tab 1 TAB PO Q6H PRN PAIN Ref 0 TAB Levothyroxine (Levothyroxine) 25 Mcg Tab 25 MCG PO DAILY Thyroid Ref 0 TAB Mirtazapine (Mirtazapine) 30 Mg Tab 30 MG PO HS Depression Control #30 Ref 0 TAB Multiple Vitamins W/ Minerals (Theragran-M) 1 Tab 1 TAB PO DAILY Nutritional Supplement Ref 0 TAB Pantoprazole (Protonix) 40 Mg Tab 20 MG PO DAILY Reflux Ref 0 TAB Ropinirole (Requip) 0.25 Mg Tab 0.25 MG PO HS Ref 0 TAB Sennosides-Docusate Sodium (Irasema-Colace) 8.6-50 Mg Tab 1 TAB PO BID Constipation Ref 0 TAB Umeclidinium-Vilanterol Inh (Anoro Ellipta Inh) 62.5-25 Mcg/Act Aero 1 PUFF INH DAILY COPD #1 Ref 0 INHALER Reilly Townsend MD December 19, 2016 1:22 pm
== END 2016-12-19 11:50 | disposition home or self-care (01) | DRG 191 ==
LOC: PHED 12:03 → PHEDA 14:26 → OBSVTOIN 14:26 → PH3B 15:18
PROVIDERS: ADMIT Hospitalist; ATTEND Hospitalist
DX: J44.1 Chronic obstructive pulmonary disease with (acute) exacerbation (principal); G91.2 (Idiopathic) normal pressure hydrocephalus; J96.11 Chronic respiratory failure with hypoxia; I25.10 Atherosclerotic heart disease of native coronary artery without angina pectoris; I10 Essential (primary) hypertension; E03.9 Hypothyroidism, unspecified; G30.9 Alzheimer's disease, unspecified; F02.80 Dementia in other diseases classified elsewhere, unspecified severity, without behavioral disturbance, psychotic disturbance, mood disturbance, and anxiety; K21.9 Gastro-esophageal reflux disease without esophagitis; E78.5 Hyperlipidemia, unspecified; Z86.73 Personal history of transient ischemic attack (TIA), and cerebral infarction without residual deficits; Z95.1 Presence of aortocoronary bypass graft; Z98.2 Presence of cerebrospinal fluid drainage device; Z99.81 Dependence on supplemental oxygen
CPT/HCPCS: 71010; 76937; 80048; 80053; 81001; 83880; 84484; 85025; 85027; 87077; 87086; 87186; 87804; 93005; 94640; 94664; 96361; 96374; 96375; G8987-GP; G8988-GP; J0456; J0696; J1650; J2930; J7030; J7050; J7512